=== PATIENT | male | born 1975 ===

== ENCOUNTER 2023-03-06 16:14 | Outpatient (CLI) | payer OTHER, SELFPAY ==
--- NOTE | 2023-03-06 16:34 | CTR_ITS ---
PROCEDURE INFORMATION: Exam: CT Abdomen And Pelvis Without And With Contrast Exam date and time: 03/06/2023 4:49 PM Age: 47 years old Clinical indication: Abnormal findings; Abnormal lab test; Patient HX: Hematuria since last TECHNIQUE: Imaging protocol: Computed tomography of the abdomen and pelvis without and with contrast. 3D rendering (Not supervised by radiologist): MIP and/or 3D reconstructed images were created by the technologist. Radiation optimization: All CT scans at this facility use at least one of these dose optimization techniques: automated exposure control; mA and/or kV adjustment per patient size (includes targeted exams where dose is matched to clinical indication); or iterative reconstruction. Contrast material: OMNIPAQUE 350; Contrast volume: 95 ml; Contrast route: INTRAVENOUS (IV); REPORTING DATA: Count of CT and Cardiac NM exams in prior 12 months: This patient has received 0 known CTs and 0 known cardiac nuclear medicine studies in the 12 months prior to the current study. COMPARISON: US abdomen limited [id number] 08/01/2019 8:51 AM RADIATION DOSE METRICS: Total DLP (mGy-cm): 3473.83 FINDINGS: Liver: Normal. No mass. Gallbladder and bile ducts: Normal. No calcified stones. No ductal dilation. Pancreas: Normal. No ductal dilation. Spleen: Normal. No splenomegaly. Adrenal glands: Normal. No mass. Kidneys and ureters: Left proximal ureter 4.4 mm calculus with minimal hydronephrosis. Stomach and bowel: Diverticulosis of diverticulitis. Constipation. Appendix: No evidence of appendicitis. Intraperitoneal space: Unremarkable. No free air. No significant fluid collection. Vasculature: Unremarkable. No abdominal aortic aneurysm. Lymph nodes: Unremarkable. No enlarged lymph nodes. Urinary bladder: Unremarkable as visualized. Reproductive: Unremarkable as visualized. Bones/joints: Unremarkable. No acute fracture. Soft tissues: Small bilateral left greater than right inguinal hernias without bowel or inflammation. CT/CT abdomen pelvis wo/w [id number] IMPRESSION: 1. Left proximal ureter 4.4 mm calculus with minimal hydronephrosis. 2. Diverticulosis of diverticulitis. 3. Constipation. 4. Small bilateral left greater than right inguinal hernias without bowel or inflammation.
[2023-03-06] MEDS: iohexol 350 mg/mL 500 mL Btl (per mL) IV (17:00)
== END 2023-03-06 16:15 | disposition home or self-care (01) ==
PROVIDERS: PCP Physician Assistant; Visit Provider Physician Assistant
DX: K57.90 Diverticulosis of intestine, part unspecified, without perforation or abscess without bleeding (principal); K40.20 Bilateral inguinal hernia, without obstruction or gangrene, not specified as recurrent; R31.9 Hematuria, unspecified; N20.1 Calculus of ureter; K59.00 Constipation, unspecified
CPT/HCPCS: 74178; Q9967

== ENCOUNTER → 2024-09-22 09:49 | Outpatient (BNVA) | payer OTHER, SELFPAY | PROVIDERS: PCP Physician Assistant; Visit Provider Nurse Practitioner Family | DX: I48.20 Chronic atrial fibrillation, unspecified (principal) | CPT/HCPCS: 93005 ==